=== PATIENT | male | born 1975 | race Caucasian/White ===

== ENCOUNTER 2018-03-03 15:40 | Emergency (ER) | payer OTHER ==
[~2018-03-03] VITALS: Ht 195.6 cm; Wt 95.3 kg
== END 2018-03-03 20:27 | disposition home or self-care (01) ==
LOC: ER 15:40
DX: J01.00 Acute maxillary sinusitis, unspecified (principal); J11.1 Influenza due to unidentified influenza virus with other respiratory manifestations

== ENCOUNTER → 2019-01-06 | Emergency (ER) | payer OTHER ==
[~2019-01-06] VITALS: Ht 195.6 cm; Wt 122.9 kg
[~2019-01-06] MED LIST: ALBUTEROL2.5 MG/3 M IH; OSEL75CA PO; ZYNCOF 20-400120 ML PO
== END | disposition home or self-care (01) ==
LOC: ER 20:23
DX: J09.X2 Influenza due to identified novel influenza A virus with other respiratory manifestations (principal); J45.998 Other asthma

== ENCOUNTER 2019-11-08 14:52 | Emergency (ER) | payer OTHER ==
[~2019-11-08] VITALS: Ht 165.1 cm; Wt 118.4 kg
[2019-11-08] MEDS ORDERED: PAXIL40 MG PO (14:58)
[2019-11-08] MEDS ORDERED: ATIVAN1 M1 PO (14:58)
[2019-11-08] MEDS ORDERED: [UNRECOGNIZED DRUG - OTHER] PO (14:59)
== END 2019-11-08 22:55 | disposition home or self-care (01) ==
LOC: ER 14:52
DX: R51 Headache (principal); M47.892 Other spondylosis, cervical region